=== PATIENT | female | born 1950 | race Caucasian/White ===

== ENCOUNTER 2016-05-03 12:30 | Emergency (ER) | payer BC, OTHER ==
[2016-05-03 12:52] VITALS: BP 130/80; PULSE 84; TEMP 97.9; BMI 19.4
--- NOTE | 2016-05-03 12:59 | PDOC ---
History of Present Illness - General Chief Complaint: Eye Problem Stated Complaint: RIGHT EYE REDNESS & PAIN Time Seen by Provider: 05/03/16 12:49 History Source: Patient (Patient walked in with a history of right eye pain and swelling of the eyelids starting yesterday, worse today. Went to her PCP ( Quang) who sent her to ER. Denies any significant past medical history, For the last few weeks she attended her ill at [facility], stressed, potential for germ contact.) - History of Present Illness Timing/Duration: unsure Severity: mild Modifying Factors: improves with: cold therapy Associated Symptoms: reports: denies symptoms Past History - Travel Traveled outside of the country in the last 30 days: No Close contact w/someone who was outside of country & ill: No - Past Medical History Allergies/Adverse Reactions: Allergies Allergy/AdvReac Type Severity Reaction Status Date / Time No Known Allergies Allergy Verified 05/03/16 12:37 Home Medications: Ambulatory Orders NK [No Known Home Medication] 05/03/16 Review of Systems - Review of Systems Able to Perform ROS?: Yes Is the patient limited Palestinian proficient: Yes Constitutional: Yes: Fever (reported low grade fever few days ago) HEENTM: Yes: Eye Pain (Right eye pain, increased with eye movement) Respiratory: No: Symptoms reported, See HPI, Cough, Orthopnea, Shortness of Breath, SOB with Exertion, SOB at Rest, Stridor, Wheezing, Productive cough, Hemoptysis, Other Cardiac (ROS): No: Symptoms Reported, See HPI, Chest Pain, Edema, Irregular Heart Rate, Lightheadedness, Palpitations, Syncope, Chest Tightness, Other ABD/GI: No: Symptoms Reported, See HPI, Abdominal Distended, Abd. Pain w/ defecation, Blood Streaked Bowels, Constipated, Diarrhea, Difficulty Swallowing , Nausea, Poor Appetite, Poor Fluid Intake, Rectal Bleeding, Vomiting, Indigestion, Abdominal cramping, Tarry Stools, Other All Other Systems: Reviewed and Negative *Physical Exam - Physical Exam General Appearance: Yes: Nourished, Appropriately Dressed, Mild Distress HEENT: positive: DEANDRE, Pharynx Normal, Pale Conjunctivae (except for peripheral hyperemia on the right eye globe, with normal pupilary reaction, normal anterior chamber and fundi ) Neck: positive: Supple. negative: Lymphadenopathy (R), Lymphadenopathy (L) Cardiovascular: positive: Regular Rate Integumentary: positive: Normal Color, Dry, Other (Mild swelling of right upper and lower eyelids, normal color and temperature) Neurologic: positive: social services analyst II-XII NML intact, Fully Oriented, Alert, Normal Mood/ Affect Medical Decision Making - Medical Decision Making Patient seen immediately from arrival, VS and visual acuity checked, wnl Working diagnosis Conjunctivitis versus retro bulbar process. Patient observed for 2 hours, CT scan of orbits performed read as normal by radiology Started Tobradex eye drops, arraned for ophtalmolofy consult in am. D/C home 05/04/16 13:43 *DC/Admit/Observation/Transfer Diagnosis at time of Disposition: [place] eye disease of right eye - Discharge Dispostion Disposition: HOME Condition at time of disposition: Stable Admit: No - Referrals Referrals: Lucille Chandler [Primary Care Provider] - - Patient Instructions Printed Discharge Instructions: DI for Conjunctivitis Additional Instructions: Put Tobradex eye drops three times moustapha. See the ophtalmologist tomorrow as scheduled
[2016-05-03] MEDS ORDERED: TOBRA 0.3%/DEXAMETH 0.1% OPHTHALMIC SUSP 2.5 ML BTL ONE (14:40)
[2016-05-03] MEDS ORDERED: TOBRA 0.3%/DEXAMETH 0.1% OPHTHALMIC SUSP 2.5 ML BTL OD SCH (18:00)
== END 2016-05-03 14:48 | disposition home or self-care (01) ==
LOC: FER 12:30
DX: H10.021 Other mucopurulent conjunctivitis, right eye (principal)
CPT/HCPCS: 70480-TC; 99282-25

== ENCOUNTER 2017-01-19 08:02 | Emergency (ER) | payer OTHER ==
[2017-01-19 08:20] VITALS: BP 138/89; PULSE 65; TEMP 98.9; BMI 19.1
--- NOTE | 2017-01-19 08:54 | PDOC ---
History of Present Illness - General Chief Complaint: Pain Stated Complaint: LEFT ARM PAIN Time Seen by Provider: 01/19/17 08:27 - History of Present Illness Initial Comments: 01/19/17 11:56 Chief complaint: Pain in the left posterior shoulder, scapular region, with radiation to the left arm. History of present illness: Pain develop during breakfast this morning. Was not present upon awakening. Pain localized to the inferior scapular border and radiating to the posterior shoulder. Transient tingling experienced in the left hand. Review of systems: No chest pain, shortness of breath, abdominal pain, nausea, diaphoresis, visual or focal neurologic symptoms, unsteadiness of gait. Remainder systems reviewed and found to be negative Past medical history: No cardiovascular disease. Cervical arthritis with cervical disc disease documented by x-ray and MRI within the last 3 years. No active medical or surgical problems. 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 No tobacco alcohol or nonprescription drugs. Family history: Both parents with cardiovascular events in their 60s, but both are still alive now in the 90s. One brother with high blood pressure but no known coronary artery disease Physical exam: Alert and oriented well-developed well-nourished no acute distress cheerful and cooperative. Pain in the area of the left scapula but the patient does not appear uncomfortable Afebrile, vital signs normal except for mildly elevated blood pressure, which declined with monitoring PERRLA, fundi benign ENT clear Neck supple without bruit mass or nodes Lungs clear with full breath sounds bilaterally. No splinting on respiration Chest without point tenderness or deformity of the chest wall and rib cage CV regular without murmur or gallop pulses full and symmetric no JVD or edema no bruits 60 and regular Abdomen benign Neurological intact Extremities no CCE Skin clear, no rash, adequate turgor and mucous membranes Impression: Patient with a history of cervical spine arthritis and disc disease , most likely an exacerbation of cervical radiculopathy. No acute injury or possibility of fracture. Rule out occult or atypical cardiac event Plan: EKG and cardiac enzymes are without significant abnormality. Pain is much improved with Motrin. Patient referred to spine surgeon but also reviewed signs of cardiac disease and follow-up recommended. Patient in no significant pain or other distress on discharge to follow up as directed Past History - Past Medical History Allergies/Adverse Reactions: Allergies Allergy/AdvReac Type Severity Reaction Status Date / Time clarithromycin [From Biaxin] Allergy Unknown Verified 01/19/17 08:08 Home Medications: Ambulatory Orders Escitalopram Oxalate [Lexapro -] 10 mg PO DAILY 01/19/17 Ibuprofen 600 mg PO TID PRN #20 tablet 01/19/17 Linaclotide [Linzess] 72 mcg PO DAILY 01/19/17 COPD: No - Suicide/Smoking/Psychosocial Hx Smoking History: Never smoked Have you smoked in the past 12 months: No Information on smoking cessation initiated: No Hx Alcohol Use: Yes (OCCASIONAL) Drug/Substance Use Hx: No Substance Use Type: None *Physical Exam - Vital Signs Last Vital Signs Temp Pulse Resp BP Pulse Ox 98.9 F 65 20 138/89 96 01/19/17 08:03 01/19/17 08:03 01/19/17 08:03 01/19/17 08:03 01/19/17 08:03 ED Treatment Course - LABORATORY CBC & Chemistry Diagram: 01/19/17 09:09 01/19/17 09:05 *DC/Admit/Observation/Transfer Diagnosis at time of Disposition: Cervical radiculopathy - Discharge Dispostion Disposition: HOME Condition at time of disposition: Improved Admit: No - Prescriptions Prescriptions: Ibuprofen 600 mg PO TID PRN #20 tablet PRN Reason: Pain - Referrals Referrals: Terry Duff MD [Staff Physician] - - Patient Instructions Printed Discharge Instructions: DI for Cervical Radiculopathy - Post Discharge Activity
[2017-01-19 09:21] LABS: BASOPHIL 0.8 % (0-2.0); EOSINOPHIL 1.5 % (0-4.5); MCH 31.1 pg (25.7-33.7); MCHC 33.2 g/dl (32.0-36.0); MEAN CELL VOLUME 93.5 fl (80-96); MEAN PLT VOLUME 8.8 fl (7.5-11.1); NEUTROPHILS 68.1 % (42.8-82.8); PLATELET COUNT 209 K/MM3 (134-434); RDW 12.1 % (11.6-15.6); WHITE BLOOD COUNT 3.4 K/mm3 (4.0-10.8)
[2017-01-19] MEDS ORDERED: IBUPROFEN 600 MG TABLET (FP) PO ONE ×2 (09:27→09:34)
[2017-01-19 09:41] LABS: ALBUMIN 4.3 g/dl (3.5-5.0); ALK PHOS 48 U/L (32-92); ANION GAP 8 (8-16); CALCIUM 9.8 mg/dl (8.4-10.2); CO2 27 mmol/L (22-28); CPK 102 IU/L (26-192); CREATININE 0.9 mg/dl (0.6-1.3); GLUCOSE,RANDOM 93 mg/dl (74-106); SGOT/AST 26 U/L (10-42); SGPT/ALT 23 U/L (10-40); TOT PROT 7.1 g/dl (6.4-8.3)
[2017-01-19 10:13] LABS: TROPONIN I (DFP) < 0.03 ng/ml (0.03-0.50)
--- NOTE | 2017-01-20 16:05 | EKG ---
Test Reason : Blood Pressure : / mmHG Vent. Rate : 059 BPM Atrial Rate : 059 BPM P-R Int : 234 ms QRS Dur : 086 ms QT Int : 456 ms P-R-T Axes : 074 035 061 degrees QTc Int : 451 ms SINUS BRADYCARDIA WITH SINUS ARRHYTHMIA WITH 1ST DEGREE A-V BLOCK OTHERWISE NORMAL ECG NO PREVIOUS ECGS AVAILABLE Confirmed by AMAYA RICO MD ([id number]) on 01/20/2017 4:05:22 PM Referred By: JAVIER LAUGHLIN Confirmed By:AMAYA RICO MD
== END 2017-01-19 10:38 | disposition home or self-care (01) ==
LOC: FER 08:02
DX: M54.12 Radiculopathy, cervical region (principal)
CPT/HCPCS: 36415; 80053; 82550; 84484; 85025; 93005; 99282-25

== ENCOUNTER 2017-05-08 14:01 | Emergency (ER) | payer OTHER ==
[2017-05-08 14:06] VITALS: BP 125/82; PULSE 64; TEMP 98.2; BMI 19.4
--- NOTE | 2017-05-08 14:23 | PDOC ---
History of Present Illness - General History Source: Patient Exam Limitations: No Limitations - History of Present Illness Initial Comments: 05/08/17 14:47 The patient is a 67 year old female who is on daily ASA but has not taken it in several days who presents to the ED complaining of a left first finger wound. She states she was cutting a hard object with a knife, slipped, and cut her finger prior to ED arrival. She complains of some mild numbness to the affected area. Bleeding is controlled with a paper towel. She denies any other injury. <Jennifer Medrano - Last Filed: 05/08/17 14:47> <Leonarda Fortune - Last Filed: 05/08/17 15:54> - General Chief Complaint: Laceration Stated Complaint: stabbed my finger Time Seen by Provider: 05/08/17 14:03 Past History <Jennifer Medrano - Last Filed: 05/08/17 14:47> - Past Medical History COPD: No Psychiatric Problems: Yes (depression) - Suicide/Smoking/Psychosocial Hx Smoking History: Never smoked Have you smoked in the past 12 months: No Hx Alcohol Use: No Drug/Substance Use Hx: No Substance Use Type: None <Leonarda Fortune - Last Filed: 05/08/17 15:54> - Past Medical History Allergies/Adverse Reactions: Allergies Allergy/AdvReac Type Severity Reaction Status Date / Time clarithromycin [From Biaxin] Allergy Unknown Verified 05/08/17 14:02 Home Medications: Ambulatory Orders Escitalopram Oxalate [Lexapro -] 10 mg PO DAILY 01/19/17 Linaclotide [Linzess] 72 mcg PO DAILY 01/19/17 Pantoprazole Sodium [Protonix] 40 mg PO DAILY 05/08/17 Review of Systems - Review of Systems Able to Perform ROS?: Yes Constitutional: No: Chills, Fever Cardiac (ROS): No: Chest Pain, Lightheadedness Integumentary: Yes: See HPI. No: Bruising Neurological: Yes: Paresthesia (left first finger ). No: Headache, Numbness <Jennifer Medrano - Last Filed: 05/08/17 14:47> *Physical Exam - Vital Signs Last Vital Signs Temp Pulse Resp BP Pulse Ox 98.2 F 64 18 125/82 100 05/08/17 14:02 05/08/17 14:02 05/08/17 14:02 05/08/17 14:02 05/08/17 14:02 - Physical Exam Comments: 05/08/17 14:53 Constitutional: Awake, alert, oriented. No acute distress. Head: Normocephalic. Atraumatic Eyes: PERRL. EOMI. Conjunctivae are not pale. Cardiovascular: Regular rate. Regular rhythm. S1, S2 regular. Distal pulses are 2+ and symmetric. Pulmonary/Chest: No evidence of respiratory distress. Clear to auscultation bilaterally No wheezing, rales or rhonchi. Skin: +1 cmsuperficial laceration to the proximal left first finger. No active bleeding. ROM is full and intact. Skin is warm and dry. No petechiae. No purpura. Neurological: Alert and oriented to person, place, and time. Cranial nerves II -XII are grossly intact. Normal speech. No sensory deficits. Psychiatric: Good eye contact. Normal interaction, affect and behavior. <Jennifer Medrano - Last Filed: 05/08/17 14:47> - Vital Signs Last Vital Signs Temp Pulse Resp BP Pulse Ox 98.2 F 64 18 125/82 100 05/08/17 14:02 05/08/17 14:02 05/08/17 14:02 05/08/17 14:02 05/08/17 14:02 <Leonarda Fortune - Last Filed: 05/08/17 15:54> Procedures - Laceration/Wound Repair Left Finger 2nd digit Wound Length: to 2.5 cm Wound's Depth, Shape: superficial Irrigated w/ Saline: Yes Betadine Prep: Yes Anesthesia: 1% Lidocaine Amount of Anesthetic (ccs): 3 Wound Debrided: minimal Wound Repaired With: Sutures Suture Size/Type: 4:0, nylon Number of Sutures: 3 Layer Closure: Yes Sterile Dressing Applied: Yes Progress: 05/08/17 15:53 pt tolerated the procedure well. simple interrupted sutures placed <Leonarda Fortune - Last Filed: 05/08/17 15:54> ED Treatment Course - Medications Given in the ED: ED Medications Discontinued Medications Generic Name Dose Route Start Last Admin Trade Name Freq PRN Reason Stop Dose Admin Acetaminophen 975 mg 05/08/17 14:35 05/08/17 14:40 Tylenol - PO 05/08/17 14:36 975 mg ONCE ONE Administration <Jennifer Medrano - Last Filed: 05/08/17 14:47> Medical Decision Making - Medical Decision Making 05/08/17 14:35 a/p: 67yo female with L hand pointer finger laceration -stabbed herself with a sharp knife accidentally -tetanus UTD -feels she hit the bone with the knife -FROM of the finger -no obvious tendon or ligament injury -will obtain xray -will need lac repair -pain control -will monitor and reassess 05/08/17 15:49 xray reviewed, no bony injury, old screws to 4th digit from prior injury lac repaired with 4-0 sutures -3x simple interrupted discussed local wound care discussed applying bacitracin discussed suture removal discussed all reasons to return to the ED and need for follow up with hand <Leonarda Fortune - Last Filed: 05/08/17 15:54> *DC/Admit/Observation/Transfer - Attestations Scribe Attestion: 05/08/17 14:56 Documentation prepared by Jennifer Medrano, acting as medical collections specialist for Leonarda Fortune DO. <Jennifer Medrano - Last Filed: 05/08/17 14:47> - Discharge Dispostion Admit: No - Attestations Physician Attestion: 05/08/17 15:52 I, Dr. Leonarda Fortune DO, attest that this document has been prepared under my direction and personally reviewed by me in its entirety. I further attest, that it accurately reflects all work, treatment, procedures and medical decision -making performed by me. <Leonarda Fortune - Last Filed: 05/08/17 15:54> Diagnosis at time of Disposition: Laceration of finger - Discharge Dispostion Disposition: HOME Condition at time of disposition: Stable - Referrals Referrals: Jag Stanley MD [Staff Physician] - - Patient Instructions Printed Discharge Instructions: DI for Laceration Repair Additional Instructions: Please keep the wound dry for 24 hours. Please apply antibiotic cream to the wound and keep it covered while at work. Please return in 7 days for suture removal. Please make an appointment to follow up with the hand surgeon for further eval of wound. Please return to the ED with any further complaints, any drainage from the wound, or redness around the wound. Please follow up with your PMD in 2-3 days.
[2017-05-08] MEDS ORDERED: ACETAMINOPHEN 325 MG TABLET (FP) PO ONE (14:35)
[2017-05-08] MEDS ORDERED: ACETAMINOPHEN 325 MG TABLET (FP) ONE (14:40)
== END 2017-05-08 15:57 | disposition home or self-care (01) ==
LOC: FER 14:01
PROC: 0HQGXZZ Repair Left Hand Skin, External Approach (ICD-10-PCS; principal; 2017-05-08)
DX: S61.012A Laceration without foreign body of left thumb without damage to nail, initial encounter (principal); W45.8XXA Other foreign body or object entering through skin, initial encounter; Y93.89 Activity, other specified; Y92.9 Unspecified place or not applicable; F32.9 Major depressive disorder, single episode, unspecified; Z79.82 Long term (current) use of aspirin
CPT/HCPCS: 73130-TC-LR-FY; 99282-25

== ENCOUNTER 2017-05-15 15:55 | Emergency (ER) | payer OTHER ==
--- NOTE | 2017-05-15 16:05 | PDOC ---
Suture Removal/Wound Check HPI <Viky Reece - Last Filed: 05/15/17 16:17> - History of Present Illness History Source: Yes: Patient (The patient is a 67 year old female, with a significant past medical history of cervical radiculopathy, who presents to the emergency department for suture removal of 3 stitches on the left first finger. The patient states she visited [place] ED one week ago s/p a laceration to the left first finger and received the 3 sutures. She denies any recent fevers, chills, headache or dizziness. She denies any recent redness, drainage, swelling or pain. She denies recent nausea, vomit, diarrhea or constipation. She denies recent chest pain or shortness of breath. Allergies: clarithromycin) Exam Limitations: Yes: No Limitations <Venancio An - Last Filed: 05/15/17 16:27> - History of Present Illness Chief Complaint: Suture/Staple Removal(Here) Stated Complaint: SUTURE REMOVAL Time Seen by Provider: 05/15/17 16:05 Past History - Past Medical History COPD: No Psychiatric Problems: Yes (depression) - Suicide/Smoking/Psychosocial Hx Smoking History: Never smoked Have you smoked in the past 12 months: No Hx Alcohol Use: No Drug/Substance Use Hx: No Substance Use Type: None <Viky Reece - Last Filed: 05/15/17 16:17> <Venancio An - Last Filed: 05/15/17 16:27> - Past Medical History Allergies/Adverse Reactions: Allergies Allergy/AdvReac Type Severity Reaction Status Date / Time clarithromycin [From Biaxin] Allergy Unknown Verified 05/15/17 15:56 Home Medications: Ambulatory Orders Escitalopram Oxalate [Lexapro -] 10 mg PO DAILY 01/19/17 Linaclotide [Linzess] 72 mcg PO DAILY 01/19/17 Pantoprazole Sodium [Protonix] 40 mg PO DAILY 05/08/17 Suture Removal/Wound Check PE - Physical Exam Comments: 05/15/17 16:24 GENERAL: Awake, alert, and fully oriented, in no acute distress HEAD: No signs of trauma EYES: PERRLA, EOMI, sclera anicteric, conjunctiva clear ENT: Auricles normal inspection, hearing grossly normal, nares patent, oropharynx clear without exudates. Moist mucosa NECK: Normal ROM, supple, no lymphadenopathy, JVD, or masses EXTREMITIES: Normal range of motion, no edema. No clubbing or cyanosis. No cords, erythema, or tenderness NEUROLOGICAL: Cranial nerves II through XII grossly intact. Normal speech, normal gait SKIN: Left first finger wound is well approximated, no drainage. Warm, Dry, normal turgor, no rashes or lesions noted. <Venancio An - Last Filed: 05/15/17 16:27> *Review of Systems - Review of Systems Comments:: 05/15/17 16:24 GENERAL/CONSTITUTIONAL: No fever or chills. No weakness. HEAD, EYES, EARS, NOSE AND THROAT: No change in vision. No ear pain or discharge. No sore throat. CARDIOVASCULAR: No chest pain or shortness of breath. RESPIRATORY: No cough, wheezing, or hemoptysis. GASTROINTESTINAL: No nausea, vomiting, diarrhea or constipation. GENITOURINARY: No dysuria, frequency, or change in urination. MUSCULOSKELETAL: No joint or muscle swelling or pain. No neck or back pain. SKIN: No rash NEUROLOGIC: No headache, vertigo, loss of consciousness, or change in strength/ sensation. ENDOCRINE: No increased thirst. No abnormal weight change. HEMATOLOGIC/LYMPHATIC: No anemia, easy bleeding, or history of blood clots. ALLERGIC/IMMUNOLOGIC: No hives or skin allergy. <Venancio An - Last Filed: 05/15/17 16:27> Medical Decision Making - Medical Decision Making 05/15/17 16:18 67 yo F presenting for suture removal Sutures in place x 1 week Wound well approximated No surrounding erythema or drainage 3 sutures removed No wound dehiscence Will discharge to home Follow up with hand if distal finger numbness persists Clinical impression: laceration, initial presentation Suture removal, initial presentation <Viky Reece - Last Filed: 05/15/17 16:17> *DC/Admit/Observation/Transfer - Discharge Dispostion Admit: No <Viky Reece - Last Filed: 05/15/17 16:17> - Attestations Scribe Attestion: 05/15/17 16:27 Documentation prepared by Venancio An, acting as biomedical equipment support specialist for Viky Reece MD. <Venancio An - Last Filed: 05/15/17 16:27> Diagnosis at time of Disposition: Encounter for removal of sutures - Discharge Dispostion Disposition: HOME - Patient Instructions Printed Discharge Instructions: DI for Suture Removal
[2017-05-15 16:09] VITALS: BP 117/82; PULSE 70; TEMP 98.2; BMI 19.4
== END 2017-05-15 16:27 | disposition home or self-care (01) ==
LOC: FER 15:55
DX: Z48.02 Encounter for removal of sutures (principal)
CPT/HCPCS: 99281-25

== ENCOUNTER 2019-11-18 12:58 | Emergency (ER) | payer OTHER ==
--- NOTE | 2019-11-18 13:13 | TELE ---
HPI Do you have fever,cough or shortness of breath?: No - General Reason For Visit: COVID 19 History Source: Patient Past History - Medical History Allergies/Adverse Reactions: Allergies Allergy/AdvReac Type Severity Reaction Status Date / Time clarithromycin [From Biaxin] Allergy Unknown Verified 05/15/17 15:56 Home Medications: Ambulatory Orders Escitalopram Oxalate [Lexapro -] 10 mg PO DAILY 01/19/17 Linaclotide [Linzess] 72 mcg PO DAILY 01/19/17 Pantoprazole Sodium [Protonix] 40 mg PO DAILY 05/08/17 COPD: No Psychiatric Problems: Yes (depression) - Immunization History Immunization Up to Date: Yes - Psycho-Social/Smoking History Smoking History: Never smoked Have you smoked in the past 12 months: No Review of Systems - Review of Systems Constitutional: No: Fever Respiratory: No: Cough *Physical Exam - Physical Exam Respiratory/Chest: negative: Respiratory Distress Discharge Diagnosis at time of Disposition: Encounter by telehealth for suspected COVID-19 - Referrals Follow-up Referral(s): Lucille Chandler [Primary Care Provider] - - Patient Instructions - Discharge Condition at time of Disposition: Stable
== END 2019-11-18 13:13 | disposition home or self-care (01) ==
LOC: JVIRT 12:58
DX: Z11.59 Encounter for screening for other viral diseases (principal)
CPT/HCPCS: Q3014-GT; U0003

== ENCOUNTER 2024-01-03 14:22 | Emergency (ER) | payer OTHER, MEDICARE ==
[2024-01-03 14:28] VITALS: BP 119/74; PULSE 90; RESP 18; TEMP 98.1; BMI 18.6
[2024-01-03] MEDS ORDERED: ACETAMINOPHEN 500 MG TABLET (FP) PO ONE (14:28)
[2024-01-03] MEDS ORDERED: ACETAMINOPHEN 500 MG TABLET (FP) ONE (14:30)
[2024-01-03] MEDS: ACETAMINOPHEN 500 MG TABLET (FP) PO ONE (14:32)
== END 2024-01-03 16:37 | disposition home or self-care (01) ==
LOC: FER 14:22
DX: S00.93XA Contusion of unspecified part of head, initial encounter (principal); W01.0XXA Fall on same level from slipping, tripping and stumbling without subsequent striking against object, initial encounter
CPT/HCPCS: 70450-TC; 72125-TC; 99284-25